=== PATIENT | male | born 1945 | race Caucasian/White ===

== ENCOUNTER 2024-04-01 09:03 | Inpatient (IN) | payer MEDICARE ==
[2024-04-01 09:28] LABS: #Basophils 0.05 10x3/uL (0.0-0.2); %Basophils 0.6 % (0.0-1.0); %Eosinophils 0.7 % (0.0-10.0); %Lymphocytes 18.3 % (21.0-51.0); %Monocytes 7.8 % (0.0-10.0); %Neutrophils 72.5 % (42.0-75.0); Hematocrit 35.9 % (42.0-52.0); Hemoglobin 11.8 g/dL (14.0-18.0); Mean Corpuscular HGB CONC 32.9 g/dL (32.0-36.0); Mean Corpuscular Hemoglobin 28.3 pg (27.0-31.0); Mean Corpuscular Volume 86.1 fL (78.0-98.0); Mean Platelet Volume 9.4 fL (7.4-10.4); Platelet Count 181 10x3/uL (130-400); RBC Distribution Width 14.3 % (11.5-14.5); Red Blood Cell (RBC) Count 4.17 mill/uL (4.70-6.10)
[2024-04-01 09:48] LABS: ALT (SGPT) 124 U/L (8-55); AST (SGOT) 137 U/L (5-34); Albumin 3.6 g/dL (3.4-4.8); Alkaline Phosphatase 89 U/L (40-110); Anion Gap 12 mmol/L (10-20); BUN (Urea Nitrogen) 17 mg/dL (8.4-25.7); Bilirubin, Total 0.8 mg/dL (0.2-1.2); Calc. Creatinine Clearance 0 mL/min (70-130); Calcium 9.6 mg/dL (7.8-10.44); Carbon Dioxide 21 mmol/L (23-31); Chloride 103 mmol/L (98-107); Estimated GFR 54; Glucose 107 mg/dL (83-110); Lipase 11 U/L (8-78); Potassium 4.1 mmol/L (3.5-5.1); Protein, Total 7.6 g/dL (5.8-8.1); Sodium 132 mmol/L (136-145)
[2024-04-01] MEDS ORDERED: Iopamidol-370 76% 500 ML MDV (1 ML CHARGE) ONE (12:19)
[2024-04-01 15:03] LABS: SARS-CoV-2 E Target Negative; SARS-CoV-2 N2 Target Negative; SARS-CoV-2 NAA Rapid Test Not Detected (NotDetected); SARS-CoV-2 RdRP gene Negative
[2024-04-01] MEDS ORDERED: Calcium Carbonate 500 MG ChewTAB PO PRN (15:22)
[2024-04-01] MEDS ORDERED: Ondansetron PF 4 MG/2 ML Vial IVP PRN (15:22)
[2024-04-01] MEDS ORDERED: Acetaminophen 325 MG TAB PO PRN (15:22)
[2024-04-01] MEDS ORDERED: Labetalol HCl 100 MG/20 ML VIAL SLOW IVP PRN (15:26)
[2024-04-01] MEDS ORDERED: Nitroglycerin 0.4 MG TAB (25 Tab Bottle) SL PRN (15:27)
[2024-04-01 18:48] VITALS: BMI 29.4
[2024-04-01] MEDS ORDERED: Labetalol HCl 100 MG/20 ML VIAL ONE (18:57)
[2024-04-01 19:51] LABS: Troponin I Less than 0.010 ng/mL (< 0.028)
[2024-04-01] MEDS ORDERED: Lisinopril 20 MG TAB ONE (21:44)
[2024-04-01] MEDS ORDERED: ALPRAZolam 0.25 MG TAB ONE (21:44)
[2024-04-01] MEDS ORDERED: Acetaminophen 500 MG TAB ONE (21:44)
[2024-04-01] MEDS ORDERED: Heparin 5,000 UNITS/ML VIAL ONE (21:44)
[2024-04-01] MEDS: Amitriptyline HCl 25 MG TAB PO SCH (22:02)
[2024-04-01] MEDS: ALPRAZolam 0.5 MG TAB PO SCH (22:02)
[2024-04-01] MEDS: Acetaminophen 500 MG TAB PO SCH (22:02)
[2024-04-01] MEDS: Heparin 5,000 UNITS/ML VIAL SC SCH (22:02)
[2024-04-01] MEDS: Lisinopril 20 MG TAB PO SCH (22:03)
[2024-04-01] MEDS: Latanoprost 0.005% Ophth Soln 2.5 ml Bottle EA EYE SCH (22:04)
[2024-04-02 05:13] LABS: #Basophils 0.04 10x3/uL (0.0-0.2); %Basophils 0.6 % (0.0-1.0); %Eosinophils 2.4 % (0.0-10.0); %Lymphocytes 27.2 % (21.0-51.0); %Monocytes 11.3 % (0.0-10.0); %Neutrophils 58.3 % (42.0-75.0); Hematocrit 34.8 % (42.0-52.0); Mean Corpuscular HGB CONC 31.6 g/dL (32.0-36.0); Mean Corpuscular Hemoglobin 27.9 pg (27.0-31.0); Mean Corpuscular Volume 88.3 fL (78.0-98.0); Mean Platelet Volume 9.6 fL (7.4-10.4); Platelet Count 175 10x3/uL (130-400); RBC Distribution Width 14.6 % (11.5-14.5); Red Blood Cell (RBC) Count 3.94 mill/uL (4.70-6.10)
[2024-04-02 05:35] LABS: ALT (SGPT) 77 U/L (8-55); AST (SGOT) 47 U/L (5-34); Albumin 3.3 g/dL (3.4-4.8); Alkaline Phosphatase 79 U/L (40-110); Anion Gap 10 mmol/L (10-20); BUN (Urea Nitrogen) 20 mg/dL (8.4-25.7); Bilirubin, Total 0.8 mg/dL (0.2-1.2); Calc. Creatinine Clearance 53 mL/min (70-130); Calcium 9.2 mg/dL (7.8-10.44); Carbon Dioxide 26 mmol/L (23-31); Chloride 104 mmol/L (98-107); Estimated GFR 43; Globulin 3.8 g/dL (2.4-3.5); Glucose 90 mg/dL (83-110); Potassium 4.4 mmol/L (3.5-5.1); Protein, Total 7.1 g/dL (5.8-8.1); Sodium 136 mmol/L (136-145)
[2024-04-02] MEDS: Aspirin 81 mg Enteric Coated Tablet PO SCH (08:51)
[2024-04-02] MEDS: Pantoprazole DR 40 MG TAB PO SCH (08:51)
[2024-04-02] MEDS: Loratadine 10 MG TAB PO SCH (08:51)
[2024-04-02] MEDS: Lisinopril 20 MG TAB PO SCH (08:51)
[2024-04-02] MEDS: FLUoxetine HCl 20 MG CAP PO SCH (08:51)
[2024-04-02] MEDS ORDERED: LevoFLOXacin 500 mg/D5W 500 MG in Premix 1 BAG IVPB SCH (14:30)
[2024-04-02] MEDS: LevoFLOXacin 750 mg/D5W 750 MG in Premix 1 BAG IVPB SCH (15:46)
[2024-04-03 05:45] LABS: #Basophils 0.07 10x3/uL (0.0-0.2); %Neutrophils 51.4 % (42.0-75.0); Hemoglobin 11.3 g/dL (14.0-18.0); Mean Corpuscular HGB CONC 31.4 g/dL (32.0-36.0); Mean Corpuscular Hemoglobin 27.6 pg (27.0-31.0); Mean Corpuscular Volume 87.8 fL (78.0-98.0); Mean Platelet Volume 9.7 fL (7.4-10.4); Platelet Count 184 10x3/uL (130-400); RBC Distribution Width 14.6 % (11.5-14.5)
[2024-04-03] MEDS: Sodium Chloride 0.9% 1,000 ML IV SCH (05:52)
[2024-04-03 06:18] LABS: ALT (SGPT) 54 U/L (8-55); AST (SGOT) 28 U/L (5-34); Albumin 3.2 g/dL (3.4-4.8); Alkaline Phosphatase 76 U/L (40-110); Anion Gap 13 mmol/L (10-20); BUN (Urea Nitrogen) 21 mg/dL (8.4-25.7); Bilirubin, Total 0.5 mg/dL (0.2-1.2); Calc. Creatinine Clearance 56 mL/min (70-130); Calcium 9.4 mg/dL (7.8-10.44); Carbon Dioxide 24 mmol/L (23-31); Chloride 105 mmol/L (98-107); Estimated GFR 46; Globulin 4.1 g/dL (2.4-3.5); Glucose 91 mg/dL (83-110); Potassium 4.5 mmol/L (3.5-5.1); Protein, Total 7.3 g/dL (5.8-8.1); Sodium 137 mmol/L (136-145)
[2024-04-03] MEDS ORDERED: Bupivacaine PF 0.5% 30 ML VIAL ONE (06:37)
[2024-04-03] MEDS ORDERED: EPINEPHrine 1 MG/ML VIAL ONE (06:37)
[2024-04-03] MEDS ORDERED: Rocuronium Bromide 10 MG/ML (10ML VIAL) ONE (07:40)
[2024-04-03] MEDS ORDERED: fentaNYL PF 100 MCG/2 ML SYRINGE ONE ×2 (07:40→09:06)
[2024-04-03] MEDS ORDERED: PROPOFOL 20 ML ONE (07:40)
[2024-04-03] MEDS ORDERED: Lidocaine 2% PF 5 ML VIAL ONE (07:40)
[2024-04-03] MEDS ORDERED: Ondansetron PF 4 MG/2 ML Vial ONE (07:41)
[2024-04-03] MEDS ORDERED: Dexamethasone 20 MG/5 ML VIAL ONE (07:41)
[2024-04-03] MEDS ORDERED: PHENYLEPHRINE-NS 100 MCG/ML 10 ML SYRINGE ONE (07:41)
[2024-04-03] MEDS ORDERED: ePHEDrine Sulfate 50 MG/10 ML VIAL ONE (07:56)
[2024-04-03] MEDS ORDERED: SUGAMMADEX SODIUM 200 MG/2 ML VIAL ONE (08:34)
[2024-04-03] MEDS ORDERED: fentaNYL 50 mcg/mL 1 mL Vial ONE (08:35)
[2024-04-03] MEDS ORDERED: Promethazine HCl 25 MG/ML VIAL IM PRN (09:00)
[2024-04-03] MEDS ORDERED: Ondansetron HCl/PF 4 MG/2 ML Vial IVP PRN (09:00)
[2024-04-03] MEDS ORDERED: hydrALAZINE 25 MG TAB PO PRN (09:18)
[2024-04-03] MEDS: traMADol HCl 50 MG TAB PO PRN (11:12)
[2024-04-03] MEDS: Acetaminophen 500 MG TAB PO SCH (12:25)
[2024-04-03] MEDS: Morphine 4 MG/ML VIAL SLOW IVP SCH (12:50)
[2024-04-03] MEDS: Aspirin 81 mg Enteric Coated Tablet PO SCH (20:35)
[2024-04-03] MEDS: Donepezil HCl 10 MG TAB PO SCH (20:35)
[2024-04-03] MEDS: Amitriptyline HCl 25 MG TAB PO SCH (20:35)
[2024-04-03] MEDS: ALPRAZolam 0.5 MG TAB PO SCH (20:35)
[2024-04-03] MEDS: Lisinopril 20 MG TAB PO SCH (20:35)
[2024-04-03] MEDS: Latanoprost 0.005% Ophth Soln 2.5 ml Bottle EA EYE SCH (20:40)
[2024-04-03] MEDS ORDERED: Non-Formulary Item 1 EACH (Alprazolam [Xanax Xr] 0.5 MG Tab.Er.24h) PO SCH (21:00)
[2024-04-04 06:13] LABS: #Basophils Less than 0.03 10x3/uL (0.0-0.2); #Eosinphils Less than 0.03 10x3/uL (0.0-0.7); %Basophils 0.1 % (0.0-1.0); %Lymphocytes 16.2 % (21.0-51.0); %Monocytes 8.1 % (0.0-10.0); %Neutrophils 75.1 % (42.0-75.0); Hematocrit 34.4 % (42.0-52.0); Hemoglobin 10.8 g/dL (14.0-18.0); Mean Corpuscular HGB CONC 31.4 g/dL (32.0-36.0); Mean Corpuscular Hemoglobin 28.3 pg (27.0-31.0); Mean Corpuscular Volume 90.3 fL (78.0-98.0); Mean Platelet Volume 9.6 fL (7.4-10.4); Platelet Count 179 10x3/uL (130-400); RBC Distribution Width 14.7 % (11.5-14.5); Red Blood Cell (RBC) Count 3.81 mill/uL (4.70-6.10)
[2024-04-04 06:26] LABS: ALT (SGPT) 79 U/L (8-55); AST (SGOT) 46 U/L (5-34); Albumin 3.1 g/dL (3.4-4.8); Alkaline Phosphatase 65 U/L (40-110); Anion Gap 15 mmol/L (10-20); BUN (Urea Nitrogen) 24 mg/dL (8.4-25.7); Bilirubin, Total 0.8 mg/dL (0.2-1.2); Calc. Creatinine Clearance 56 mL/min (70-130); Calcium 8.9 mg/dL (7.8-10.44); Carbon Dioxide 21 mmol/L (23-31); Chloride 103 mmol/L (98-107); Estimated GFR 46; Globulin 4.3 g/dL (2.4-3.5); Glucose 111 mg/dL (83-110); Potassium 4.3 mmol/L (3.5-5.1); Protein, Total 7.4 g/dL (5.8-8.1); Sodium 135 mmol/L (136-145)
[2024-04-04] MEDS: FLUoxetine HCl 20 MG CAP PO SCH (08:42)
[2024-04-04] MEDS: Pantoprazole DR 40 MG TAB PO SCH (08:43)
[2024-04-04 11:56] VITALS: BP 118/64; TEMP 98.2
[2024-04-10] MEDS ORDERED: Non-Formulary Item 1 EACH (Evolocumab [Repatha Syringe] 140 MG/ML Syringe) SQ SCH (09:00)
[2024-04-10] MEDS ORDERED: EVOLOCUMAB 140 MG/ML DT SCH (09:00)
== END 2024-04-04 13:09 | disposition home or self-care (01) | DRG 419 ==
LOC: ERS 09:03 → ERHOLD 12:13 → 2SW 04-02 01:23 → OBSVTOIN 04-02 14:23 → T4-A 04-02 17:46
PROVIDERS: ADMIT Internal Medicine; ATTEND Internal Medicine
PROC: 0FT44ZZ Resection of Gallbladder, Percutaneous Endoscopic Approach (ICD-10-PCS; principal; 2024-04-03)
DX: K80.10 Calculus of gallbladder with chronic cholecystitis without obstruction (principal); I25.10 Atherosclerotic heart disease of native coronary artery without angina pectoris; E78.5 Hyperlipidemia, unspecified; M19.90 Unspecified osteoarthritis, unspecified site; I12.9 Hypertensive chronic kidney disease with stage 1 through stage 4 chronic kidney disease, or unspecified chronic kidney disease; G47.33 Obstructive sleep apnea (adult) (pediatric); K21.9 Gastro-esophageal reflux disease without esophagitis; E11.9 Type 2 diabetes mellitus without complications; F41.9 Anxiety disorder, unspecified; F32.A Depression, unspecified; N18.9 Chronic kidney disease, unspecified; K76.0 Fatty (change of) liver, not elsewhere classified; K66.0 Peritoneal adhesions (postprocedural) (postinfection); Z95.1 Presence of aortocoronary bypass graft; Z79.899 Other long term (current) drug therapy
CPT/HCPCS: 36415; 71045; 71275; 74174; 76705; 80053; 83690; 84484; 85025; 85379; 93005; 94760; 96372; C1889; G0378; J0171; J0665; J1100; J1644; J1956; J2001; J2270; J2405; J2704; J3010; J7050; Q9967; U0002